=== PATIENT | female | born 1965 | race African-American/Black ===

== ENCOUNTER 2017-03-23 16:01 | Inpatient (IN) ==
[2017-03-23] MEDS ORDERED: ONDANSETRON 4 MG/2 ML VIAL IV STA (19:21)
[2017-03-23] MEDS ORDERED: NITROGLYCERIN 2% OINT 1 INCH/GM PACK TOP STA (19:21)
[2017-03-23] MEDS ORDERED: MORPHINE 2 MG/1 ML SYRINGE IV STA (19:21)
[2017-03-23] MEDS ORDERED: ALUM/MAG/SIMETH/LIDO VISC 1:1 30 ML BOTTLE PO STA (19:21)
[2017-03-23] MEDS ORDERED: INSULIN REGULAR 100 UNIT/ML IV STA (19:22)
[2017-03-23 19:27] LABS: Basophils # 0.1 10*3/uL (0.0-0.2); Basophils % 0.6 % (0.0-0.8); Eosinophils # 0.1 10*3/uL (0.0-0.87); Eosinophils % 1.1 % (0.00-10.9); Hematocrit 44.1 VOL% (35.7-47.0); Hemoglobin 15.5 GM/DL (12.0-16.0); Immature Granulocytes % 0.6 %; Immature Granulocytes Absolute 0.05 #; Lymphocytes # 2.2 10*3/uL (1.4-4.0); Lymphocytes % 25.7 % (21.3-54.2); Mean Corpuscular HGB Conc 35.1 GM/DL (32-36); Mean Corpuscular Hemoglobin 30 PG (27-34); Mean Platelet Volume 10.4 FL (9.6-12.0); Monocytes # 0.8 10*3/uL (0.11-0.8); Monocytes % 9.1 % (1.7-12.7); Neutrophils # 5.4 10*3/uL (1.4-7.4); Neutrophils % 62.9 % (38.7-73.9); Platelet Count 347 T/CUMM (130-400); Red Blood Count 5.13 MC/CUMM (3.8-5.5); Red Cell Distribution Width 12.7 % (9.3-17.3); White Blood Count 8.5 T/CUMM (4-12)
[2017-03-23] MEDS ORDERED: MORPHINE 2 MG/1 ML SYRINGE ONE (19:29)
[2017-03-23] MEDS ORDERED: ONDANSETRON 4 MG/2 ML VIAL ONE (19:29)
[2017-03-23] MEDS ORDERED: ALUM/MAG/SIMETH/LIDO VISC 1:1 30 ML BOTTLE PO ONE (19:29)
[2017-03-23] MEDS ORDERED: NITROGLYCERIN 2% OINT 1 INCH/GM PACK TOP ONE (19:29)
[2017-03-23] MEDS ORDERED: INSULIN REGULAR 100 UNIT/ML ONE ×2 (19:31→20:10)
[2017-03-23 19:36] LABS: INR 0.9; PT Patient Result 9.3 SECS
--- NOTE | 2017-03-23 19:44 | XRay Report ---
XR chest 1V portable Indication: Chest pain. Chest one view: Comparison 12/06/2014. The heart size and mediastinal contour are normal. The lungs and pleural spaces are clear. Bones are unremarkable. Impression: Negative chest. PROCEDURE INTERPRETED AT [facility] DEPARTMENT OF RADIOLOGY Final Report Signed by: Reno Jose M.D.
[2017-03-23 19:45] LABS: Albumin 3.7 G/DL (3.4-5.0); Bilirubin,Total 0.6 MG/DL (0.2-1.0); Calcium 9.2 MG/DL (8.5-10.1); Magnesium 2.3 MG/DL (1.8-2.4); Osmolality,Calculated 286.4 MOS/KG (273-304); Potassium 4.8 MMOL/L (3.5-5.1); Total Protein 8.1 G/DL (6.4-8.3)
[2017-03-23 19:53] LABS: Barbiturates Screen,Urine Negative (Negative); Benzodiazepines Screen,Urine Negative (Negative); Cannabinoid Screen,Urine Negative (Negative); Opiate Screen,Urine Negative (Negative); Phencyclidine Screen,Urine Negative (Negative)
[2017-03-23 19:57] LABS: Apearance,Urine CLEAR (Clear); Bilirubin,Urine Negative (Negative); Blood, Urine Moderate mg/dL (Negative); Glucose,Urine (UA) >=500 mg/dL (Negative); Ketones,Urine 80 mg/dL (Negative); Mucus,Urine Occasional /LPF (Occasional); Nitrite,Urine Negative (Negative); Protein,Urine Negative; RBC,Urine 6 /HPF (0-4); Squamous Epithelial Cell,Urine Occasional /HPF (0-10); Urine Color Colorless (Yellow); Urine Specific Gravity 1.025 (1.001-1.035); Urine Urobilinogen < 2.0 EU/DL (0.2-1.0); WBC,Urine 7 /HPF (0-6)
[2017-03-23] MEDS ORDERED: INSULIN REGULAR 100 UNIT/ML SUBCUT STA (20:02)
[2017-03-23] MEDS ORDERED: SODIUM CHLORIDE 0.9% 2,000 ML IV STA (20:14)
--- NOTE | 2017-03-23 20:16 | Emergency Department Note ---
Abhijeet Issa Gwan, am scribing for, and in the presence of, Sherwin Bloom MD 19 :15. Wolf Issa Charles R, MD, personally performed the services described in this documentation, ascribed by Chad Jha in my presence, and it is both accurate and complete 015 . Arrival - Arrival Chief Complaint: Chest Pain Stated Complaint: chest pain/swelling on side of private areas ED Nursing Triage Note: chest pain for the past three days. sob with chest pain today. also reports some swelling to vaginal area. Mode of Arrival: Ambulatory Limitations: No Limitations Source: Patient, Old Records Reviewed, RN Notes Reviewed Time Seen by Provider: 03/23/17 18:49 - History of Present Illness HPI Narrative: Patient is a 51 y/o black female who presents to the ED with a c/o chest pain and SOB with an onset 3 weeks ago. Patient stated that she has also had blurred vision, dry mouth and that her SOB worsens with exertion. She noted that her pain has worsened within the last 3 days prompting her visit to the ED for further evaluation. Patient confirmed that she quit smoking 2 weeks ago but denies any hx of DM or having a PCP. During exam, pt noted that she has had some swelling to her vaginal area. No other problems/complaints reported in ED. Onset (ago): day(s) Consistency: constant Severity: moderate Date of Last Menstrual Period: hyst Allergies/Adverse Reactions: Allergies Allergy/AdvReac Type Severity Reaction Status Date / Time aspirin Allergy RASH Verified 01/31/16 17:00 Home Medications: Home Medications Medication Instructions Recorded Confirmed Type No Known Home Medications [No 03/23/17 03/23/17 History Known Home Medications] Review of System - Review of System 12 point system: reviewed and no additional remarkable complaints except as stated - Review of System Constitutional: Absent: chills, fever Eyes: Present: as per HPI, vision change Head/Ears/Nose/Throat: Absent: earache Respiratory: Present: as per HPI, other (shortness of breathe ). Absent: cough Cardiovascular: Present: as per HPI, chest pain Gastrointestinal: Absent: abdominal pain, nausea, vomiting, diarrhea Genitourinary female: Absent: abnormal menses, dysuria Musculoskeletal: Absent: arm pain, back pain, leg pain, neck pain Skin: Absent: rash, lesions Neurological: Absent: headache, weakness Medical,Surgical,& Family Hx - Surgical History Reproductive Surgeries: Surgical HX of;: Hysterectomy (1997) - Social History Smoking Status: Current every day smoker Exam Vital Signs: Vital Signs Temperature 98.1 F 03/23/17 18:43 Pulse Rate 105 H 03/23/17 18:43 Respiratory Rate 20 03/23/17 18:43 Blood Pressure 192/107 03/23/17 18:43 O2 Sat by Pulse Oximetry 100 03/23/17 18:43 - General General appearance: alert, in no apparent distress - Head Head exam: Present: atraumatic, normocephalic - Eye Eye exam: Present: normal appearance, PERRL, EOMI - ENT ENT exam: Present: normal oropharynx, mucous membranes moist, TM's normal bilaterally, normal external ear exam - Neck Neck exam: Present: full ROM, trachea midline. Absent: tenderness - Chest Chest inspection: Present: symmetric chest wall rise. Absent: tenderness - Respiratory Respiratory exam: Present: rales (bilateral located at the base ), other ( decreased breath sounds ). Absent: respiratory distress - Cardiovascular Cardiovascular exam: Present: normal rhythm, tachycardia - Abdominal Exam Abdominal exam: Present: soft, normal bowel sounds. Absent: distention, tenderness - Extremities Exam Extremities exam: Present: other (+1 edema LE) - Back Exam Back exam: Present: full ROM. Absent: tenderness - Neurological Exam Neurological exam: Present: alert, oriented X3, CN II-XII intact. Absent: motor sensory deficit - Psychiatric Psychiatric exam: Present: normal affect, normal mood - Skin Skin exam: Present: warm, dry, intact, normal color Course - Consultations Consultation #1: Hospitalist will admit patient Time: 20:05 Results - Labs CBC & BMP: 03/23/17 18:38 03/23/17 18:38 Lab Results: I have reviewed the patients labs Labs: Laboratory Tests 03/23/17 03/23/17 03/23/17 18:38 18:38 18:38 Sodium 126 L Potassium 4.8 Chloride 91 L Carbon Dioxide 14 L Anion Gap 25.8 H BUN 12 Creatinine 1.00 Glucose 703 H* Alkaline Phosphatase 191 H Globulin 4.4 H Albumin/Globulin Ratio 0.8 L Lipase 357.0 Urine pH 5.0 Ur Specific Copen 1.025 Urine Glucose (UA) >=500 Urine Ketones 80 Urine Urobilinogen < 2.0 H Urine Leukocytes Small H Urine RBC 6 Urine WBC 7 Urine Opiates Screen Negative Ur Barbiturates Screen Negative Ur Phencyclidine Scrn Negative U Amphetamine/Methamph Negative U Benzodiazepines Scrn Negative U Cocaine Metab Screen Negative U Cannabinoids Screen Negative Laboratory Tests 03/23/17 18:38 WBC 8.5 RBC 5.13 Hgb 15.5 Hct 44.1 MCV 86.0 L Plt Count 347 Critical Care Time Critical Care Time: Yes Total Critical Care Time: 60 Disposition Clinical Impression: Atypical chest pain, Diabetes mellitus, new onset, Hyperglycemia, Hyponatremia , Generalized weakness, Uncontrolled hypertension, Diabetic ketoacidosis Case discussed with: patient, patient's family Disposition: Still a Patient Condition: Critical Time of Disposition: 20:05
[2017-03-23 20:17] LABS: ABG Base Excess -17.2 MMOL/L (-2.5-2.5); ABG Oxygen Saturation 98.5 % (95-100); ABG TCO2 7.4 MMOL/L (23-27); Allen Test Positive
[2017-03-23 20:22] LABS: ABG PCO2 18.3 MM HG (35-48)
[2017-03-23] MEDS ORDERED: cefTRIAXone 1,000 MG VIAL ONE (20:26)
--- NOTE | 2017-03-23 20:31 | Hospitalist History & Physical ---
Assessment and Plan (1) Diabetic ketoacidosis Status: Acute Assessment and plan: NS bolus and insulin bolus given in ER. DKA insulin drip and cont NS bolus Current Visit: Yes (2) Chest pain Status: Acute Assessment and plan: serial troponins and ekgs Current Visit: Yes (3) Hyponatremia Status: Acute Assessment and plan: ns bolus and cont NS hydration Current Visit: Yes (4) Uncontrolled hypertension Status: Acute Assessment and plan: metoprolol 25 mg po bid Current Visit: Yes History of Present Illness Chief complaint: sob History of present illness: Ms. Jackson is a 51 year old female who presents to the ED with a c/o chest pain and SOB with an onset 3 weeks ago. Patient stated that she has also had blurred vision, dry mouth, chest pressure and that her SOB worsens with exertion. She noted that her chest pain has worsened within the last 3 days prompting her visit to the ED for further evaluation. Patient confirmed that she quit smoking and drinking two weeks ago but denies any hx of DM or having a PCP. During exam , pt noted that she has had some swelling to her vaginal area. No other problems /complaints reported in ED. Home Medications Medication Instructions Recorded Confirmed Type No Known Home Medications [No 03/23/17 03/23/17 History Known Home Medications] Allergies Allergy/AdvReac Type Severity Reaction Status Date / Time aspirin Allergy RASH Verified 01/31/16 17:00 Medical,Surgical,& Family Hx - Medical History Other: History of: Miscellaneous Medical Problems (none ) - Surgical History Reproductive Surgeries: Surgical HX of;: Hysterectomy (1997) Orthopedic Surgeries: Surgical HX of;: Orthopedic Surgery (foot surgery ) - Family History Family History: Reports;: Family Diabetes, Family Heart Disease, Family Stroke - Social History Smoking Status: Former smoker Frequency of Alcohol Use: None (used to drink but quit) Marital Status: Lives With:: Spouse Functional capacity: independent ambulation - Constitutional Constitutional: Present: fatigue, fever(s). Absent: headache(s) - EENT Eyes: Present: blurry vision. Absent: diplopia Ears: Absent: decreased hearing, ear discharge Nose, mouth and throat: Absent: headache(s), sore throat - Cardiovascular Cardiovascular: Present: chest pain at rest, chest pain with activity, dyspnea, dyspnea on exertion. Absent: edema - Respiratory Respiratory: Present: dyspnea, dyspnea on exertion. Absent: wheezing - Gastrointestinal Gastrointestinal: Present: nausea. Absent: constipation, diarrhea, vomiting - Genitourinary Genitourinary: Absent: difficulty urinating, dysuria - Neurological Neurological: Present: confusion, dizziness. Absent: focal weakness, headache(s ), syncope - Psychiatric Psychiatric: Present: confusion. Absent: anxiety, depression - Endocrine Endocrine: Present: cold intolerance, fatigue - Hematologic/Lymphatic Hematologic/Lymphatic: Absent: easy bleeding, easy bruising Exam - Constitutional Vitals: Period Temp Pulse Resp BP Sys/Cunningham Pulse Ox Last 24 Hr 98.1 F-98.1 F 84-105 15-20 141-192/94-107 99-100 General appearance: normal weight, mild distress - Head Head exam: Present: normal inspection, normocephalic - Eye Eye exam: Present: EOMI. Absent: scleral icterus Pupils: Present: CYNTHIA, normal accommodation - ENT ENT exam: Present: normal exam, normal external ear exam - Neck Neck exam: Absent: lymphadenopathy, thyromegaly - Respiratory Respiratory exam: Present: clear to auscultation bilaterally. Absent: rhonchi, wheezes - Cardiovascular Cardiovascular exam: Present: tachycardia. Absent: systolic murmur - GI/Abdominal GI/Abdominal exam: Present: normal bowel sounds, soft. Absent: tenderness - Extremities Exam Extremities exam: Present: normal inspection, normal capillary refill - Neurological Exam Neurological exam: Present: alert, oriented X3 (times 2), reflexes normal. Absent: motor sensory deficit - Psychiatric Psychiatric exam: Present: normal affect, normal mood - Skin Skin exam: Present: normal color, warm Results - Labs CBC & BMP: 03/23/17 18:38 03/23/17 18:38 Lab Results: I have reviewed the past 24 hour labs - EKG EKG shows: tachycardia, sinus rhythm - Diagnostic Findings Procedure: Chest x-ray: report reviewed by me (nothing acute )
[2017-03-23 20:36] LABS: Magnesium 2.4 MG/DL (1.8-2.4); Phosphorous 4.2 MG/DL (2.5-4.9)
[2017-03-23] MEDS: cefTRIAXone 1,000 MG in SODIUM CHLORIDE 0.9% 100 ML IV SCH (20:40)
[2017-03-23] MEDS ORDERED: MAGNESIUM SULF RIDER 2 GM in PREMIX 1 EACH IV PRN (21:15)
[2017-03-23] MEDS ORDERED: SODIUM CHLORIDE 0.9% 1,000 ML IV ONE (21:15)
[2017-03-23] MEDS ORDERED: SODIUM BICARB INJ 100 MEQ in STERILE WATER INJ 400 ML IV PRN (21:15)
[2017-03-23] MEDS ORDERED: POTASSIUM CHLORIDE RIDER 10 MEQ in PREMIX 1 EACH IV PRN (21:15)
[2017-03-23] MEDS ORDERED: DEXTROSE 50% 25 GM/50 ML VIAL IV PRN ×2 (21:15)
[2017-03-23] MEDS ORDERED: MAGNESIUM SULF RIDER 4 GM in PREMIX 1 EACH IV PRN (21:15)
[2017-03-23] MEDS ORDERED: INSULIN REGULAR DRIP 100 ML IV SCH (21:15)
[2017-03-23] MEDS ORDERED: SODIUM PHOSPHATE INJ 14.2 MMOL in SODIUM CHLORIDE 0.9% 250 ML IV PRN (21:15)
[2017-03-23 21:51] LABS: Basophils % 0.4 % (0.0-0.8); Eosinophils # 0.1 10*3/uL (0.0-0.87); Eosinophils % 1.8 % (0.00-10.9); Hematocrit 36.7 VOL% (35.7-47.0); Hemoglobin 12.7 GM/DL (12.0-16.0); Immature Granulocytes % 0.3 %; Immature Granulocytes Absolute 0.02 #; Lymphocytes # 2.2 10*3/uL (1.4-4.0); Lymphocytes % 29.5 % (21.3-54.2); Mean Corpuscular HGB Conc 34.6 GM/DL (32-36); Mean Corpuscular Hemoglobin 30 PG (27-34); Mean Corpuscular Volume 86.4 FL (87-102); Mean Platelet Volume 9.9 FL (9.6-12.0); Monocytes # 0.9 10*3/uL (0.11-0.8); Neutrophils # 4.1 10*3/uL (1.4-7.4); Platelet Count 289 T/CUMM (130-400); Red Blood Count 4.25 MC/CUMM (3.8-5.5); Red Cell Distribution Width 12.7 % (9.3-17.3); White Blood Count 7.4 T/CUMM (4-12)
[2017-03-23] MEDS: METOPROLOL TARTRATE 25 MG TABLET PO SCH (21:53)
[2017-03-23 22:18] LABS: Calcium 8.4 MG/DL (8.5-10.1)
[2017-03-23] MEDS: SODIUM CHLORIDE 0.9% 1,000 ML IV SCH (22:44)
[2017-03-23] MEDS ORDERED: diphenhydrAMINE 50 MG/1 ML VIAL IV PRN (23:38)
[2017-03-23] MEDS: FLUCONAZOLE INJ 200 MG in PREMIX 1 EACH IV SCH (23:56)
[2017-03-24] MEDS ORDERED: SODIUM CHLORIDE 0.9% 1,000 ML IV SCH ×2 (01:17→04:00)
[2017-03-24] MEDS: SODIUM CHLORIDE 0.9% 1,000 ML IV SCH (01:46)
[2017-03-24 01:53] LABS: Osmolality,Calculated 285.8 MOS/KG (273-304); Potassium 3.5 MMOL/L (3.5-5.1)
[2017-03-24 02:03] LABS: Magnesium 1.8 MG/DL (1.8-2.4); Phosphorous 1.9 MG/DL (2.5-4.9)
[2017-03-24] MEDS ORDERED: DEXTROSE 5% NACL 0.9% 1,000 ML IV SCH (02:30)
[2017-03-24 05:35] LABS: Basophils % 0.4 % (0.0-0.8); Eosinophils # 0.1 10*3/uL (0.0-0.87); Eosinophils % 1.9 % (0.00-10.9); Hematocrit 29.4 VOL% (35.7-47.0); Hemoglobin 10.4 GM/DL (12.0-16.0); Immature Granulocytes % 0.6 %; Immature Granulocytes Absolute 0.03 #; Lymphocytes # 1.8 10*3/uL (1.4-4.0); Lymphocytes % 33.7 % (21.3-54.2); Mean Corpuscular HGB Conc 35.4 GM/DL (32-36); Mean Corpuscular Hemoglobin 30 PG (27-34); Mean Corpuscular Volume 85.7 FL (87-102); Mean Platelet Volume 9.8 FL (9.6-12.0); Monocytes # 0.5 10*3/uL (0.11-0.8); Monocytes % 8.8 % (1.7-12.7); Neutrophils # 2.9 10*3/uL (1.4-7.4); Neutrophils % 54.6 % (38.7-73.9); Platelet Count 236 T/CUMM (130-400); Red Blood Count 3.43 MC/CUMM (3.8-5.5); Red Cell Distribution Width 12.7 % (9.3-17.3); White Blood Count 5.3 T/CUMM (4-12)
[2017-03-24 06:00] LABS: Calcium 6.8 MG/DL (8.5-10.1); Osmolality,Calculated 282.1 MOS/KG (273-304); Potassium 3.3 MMOL/L (3.5-5.1)
[2017-03-24] MEDS: DEXTROSE 5% NACL 0.9% 500 ML IV SCH ×2 (06:30→08:31)
--- NOTE | 2017-03-24 06:37 | EKG Report ---
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
--- NOTE | 2017-03-24 07:55 | EKG Report ---
Stationary ECG Study [facility] Test Date: 03/24/2017 6:13:26 AM Pat Name: GREGORY GERARD Department: Room: 123 Gender: F Document Review Specialist: : 1965 Requested by: Alannah Jacob Order Number: [id number] Reading MD: CATHERINE RODRIGUES Intervals [place] Rate: 75 P: 62 AL: 164 QRS: 72 QRSD: 82 T: 35 QT: 354 QTc: 383 Interpretive Statements SINUS RHYTHM POSSIBLE RIGHT VENTRICULAR CONDUCTION DELAY Electronically Signed On 03-25-17 16:16:22 CDT by CATHERINE RODRIGUES [email or web address]
--- NOTE | 2017-03-24 08:03 | EKG Report ---
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
[2017-03-24] MEDS ORDERED: POTASSIUM CHLORIDE 20 MEQ TABLET PO ONE (08:17)
[2017-03-24] MEDS ORDERED: GLUCAGON 1 MG VIAL IM PRN (08:20)
[2017-03-24] MEDS ORDERED: MAGNESIUM SULF RIDER 2 GM in PREMIX 1 EACH IV ONE (08:23)
--- NOTE | 2017-03-24 08:55 | XRay Report ---
XR chest 1V portable Indication: Shortness of breath Comparison: 23 March 2017 Findings: The heart and mediastinum are normal in size and configuration. The pulmonary vascularity is normal in caliber. No lung infiltrates, effusions, pneumothorax or other abnormality is demonstrated. Impression: Normal chest x-ray PROCEDURE INTERPRETED AT [facility] DEPARTMENT OF RADIOLOGY Final Report Signed by: Dr. See Lorenzana
[2017-03-24] MEDS: INSULIN NPH/REGULAR 70/30 100 UNIT/ML SUBCUT SCH (09:21)
[2017-03-24] MEDS: ENOXAPARIN 40 MG/0.4 ML SYRINGE SUBCUT SCH (09:32)
[2017-03-24] MEDS: METOPROLOL TARTRATE 25 MG TABLET PO SCH ×2 (09:32→21:12)
[2017-03-24] MEDS: MAGNESIUM SULF RIDER 2 GM in PREMIX 1 EACH IV ONE ×2 (10:00→13:07)
[2017-03-24 10:28] LABS: Calcium 7.1 MG/DL (8.5-10.1); Osmolality,Calculated 284.1 MOS/KG (273-304); Potassium 3.6 MMOL/L (3.5-5.1)
[2017-03-24] MEDS ORDERED: SODIUM CHLORIDE 0.9% 500 ML IV ONE (12:26)
--- NOTE | 2017-03-24 12:46 | Hospitalist Progress Note ---
Assessment and Plan (1) Diabetic ketoacidosis Status: Acute Assessment and plan: converted to 70/30, change blood sugars qAC and qHS. cont fluids 1/2 ns with 40 meq of KCL Current Visit: Yes (2) Chest pain Status: Acute Assessment and plan: serial troponins negative, EKG unable to view. Current Visit: Yes (3) Hyponatremia Status: Acute Assessment and plan: resolved Current Visit: Yes (4) Uncontrolled hypertension Status: Acute Assessment and plan: metoprolol 25 mg po bid Current Visit: Yes Hospitalist: Subjective Interval history: Gap is closed given 70/30 insulin as noninsured. Blood pressure better today. Exam - Constitutional Vitals: Period Temp Pulse Resp BP Sys/Cunningham Pulse Ox Last 24 Hr 97.9 F-98.4 F 67-105 14-23 79-192/60-107 96-100 Exam: Heart Rate-[RRR] Lungs-[CTAB but diminished ] GI-[+bs soft, NT] Ext-[no edema] Neuro [Motor 5/5], [alert and oriented times 3] psych [normal mood and affect] General [no acute distress] Results - Labs CBC & BMP: 03/24/17 05:21 03/24/17 09:49 Lab Results: I have reviewed the past 24 hour labs - Diagnostic Findings Procedure: Chest x-ray: report reviewed by me (normal )
[2017-03-24] MEDS: INSULIN REGULAR 100 UNIT/ML SUBCUT SCH ×3 (12:53→21:11)
[2017-03-24] MEDS: POTASSIUM CHLORIDE INJ 40 MEQ in SODIUM CHLORIDE 0.45% 1,000 ML IV SCH (12:55)
[2017-03-24] MEDS ORDERED: SODIUM CHLORIDE 0.45% 1,000 ML IV SCH (13:17)
[2017-03-24] MEDS ORDERED: POTASSIUM PHOSPHATE 30 MMOL in SODIUM CHLORIDE 0.9% 250 ML IV ONE (13:30)
[2017-03-24] MEDS ORDERED: INSULIN NPH/REGULAR 70/30 100 UNIT/ML SUBCUT SCH (16:30)
[2017-03-24] MEDS: cefTRIAXone 1,000 MG in SODIUM CHLORIDE 0.9% 100 ML IV SCH (21:08)
[2017-03-25] MEDS: POTASSIUM CHLORIDE INJ 40 MEQ in SODIUM CHLORIDE 0.45% 1,000 ML IV SCH ×4 (00:05→21:41)
[2017-03-25] MEDS: FLUCONAZOLE INJ 200 MG in PREMIX 1 EACH IV SCH (00:21)
[2017-03-25 06:42] LABS: Basophils % 0.2 % (0.0-0.8); Eosinophils # 0.1 10*3/uL (0.0-0.87); Eosinophils % 2.1 % (0.00-10.9); Hematocrit 31.4 VOL% (35.7-47.0); Hemoglobin 11.2 GM/DL (12.0-16.0); Immature Granulocytes % 0.5 %; Immature Granulocytes Absolute 0.03 #; Lymphocytes # 1.8 10*3/uL (1.4-4.0); Lymphocytes % 31.6 % (21.3-54.2); Mean Corpuscular HGB Conc 35.7 GM/DL (32-36); Mean Corpuscular Hemoglobin 30 PG (27-34); Mean Corpuscular Volume 84.9 FL (87-102); Mean Platelet Volume 10.1 FL (9.6-12.0); Monocytes # 0.5 10*3/uL (0.11-0.8); Monocytes % 8.9 % (1.7-12.7); Neutrophils # 3.3 10*3/uL (1.4-7.4); Neutrophils % 56.7 % (38.7-73.9); Platelet Count 273 T/CUMM (130-400); Red Cell Distribution Width 12.9 % (9.3-17.3); White Blood Count 5.8 T/CUMM (4-12)
[2017-03-25 07:12] LABS: Calcium 7.7 MG/DL (8.5-10.1); Magnesium 1.9 MG/DL (1.8-2.4); Osmolality,Calculated 279.1 MOS/KG (273-304); Potassium 4.1 MMOL/L (3.5-5.1)
[2017-03-25] MEDS ORDERED: PNEUMOCOCCAL VACCINE (23 VALENT) 0.5 ML VIAL IM ONE (09:00)
[2017-03-25] MEDS: INSULIN REGULAR 100 UNIT/ML SUBCUT SCH ×4 (09:23→22:02)
[2017-03-25] MEDS: INSULIN NPH/REGULAR 70/30 100 UNIT/ML SUBCUT SCH ×2 (09:23→17:29)
[2017-03-25] MEDS: METOPROLOL TARTRATE 25 MG TABLET PO SCH ×2 (09:23→21:26)
[2017-03-25] MEDS: ENOXAPARIN 40 MG/0.4 ML SYRINGE SUBCUT SCH (09:24)
--- NOTE | 2017-03-25 14:39 | Hospitalist Progress Note ---
Assessment and Plan (1) Diabetic ketoacidosis Status: Acute Assessment and plan: Resolving, blood sugar is still high Increase 70/30 to 40unit qam and 25unit qhs, follow response hbA1c->15.5 DM teaching TSH, lipids level Current Visit: Yes (2) Hyponatremia Status: Acute Assessment and plan: most likely pseudo due to hyperglycemia- resolved Current Visit: Yes (3) HTN (hypertension) Status: Acute Assessment and plan: better controlled. Current Visit: Yes (4) Yeast UTI Status: Acute Assessment and plan: on IV diflucan BC- negative consider dcing Rocephin Current Visit: Yes Hospitalist: Subjective Interval history: Patient was admitted to the unit for DKA,transferred to the floor yesterday.This am, she feels better but we are still adjusting her insulin. Exam - Constitutional Vitals: Period Temp Pulse Resp BP Sys/Cunningham Pulse Ox Last 24 Hr 97.6 F-98.9 F 77-95 16-24 103-141/68-97 96-100 General appearance: no acute distress - Head Head exam: Present: normal inspection - Respiratory Respiratory exam: Present: clear to auscultation bilaterally - Cardiovascular Cardiovascular exam: Present: regular rate and rhythm - GI/Abdominal GI/Abdominal exam: Present: normal bowel sounds - Extremities Exam Extremities exam: Present: normal inspection - Neurological Exam Neurological exam: Present: alert, oriented X3 Results - Labs CBC & BMP: 03/25/17 06:28 03/25/17 06:28 Lab Results: I have reviewed the past 24 hour labs
[2017-03-25 15:46] LABS: Free T4 (Free Thyroxine) 1.29 NG/DL (0.76-1.46); Thyroid Stimulating Hormone 1.66 uIU/ml (0.358-3.74)
[2017-03-25] MEDS: cefTRIAXone 1,000 MG in SODIUM CHLORIDE 0.9% 100 ML IV SCH (21:28)
[2017-03-26] MEDS: FLUCONAZOLE INJ 200 MG in PREMIX 1 EACH IV SCH (00:08)
[2017-03-26] MEDS: POTASSIUM CHLORIDE INJ 40 MEQ in SODIUM CHLORIDE 0.45% 1,000 ML IV SCH ×2 (02:18→12:43)
[2017-03-26 05:12] LABS: Basophils % 0.2 % (0.0-0.8); Eosinophils # 0.1 10*3/uL (0.0-0.87); Eosinophils % 2.1 % (0.00-10.9); Hematocrit 30.7 VOL% (35.7-47.0); Hemoglobin 10.8 GM/DL (12.0-16.0); Immature Granulocytes % 0.6 %; Immature Granulocytes Absolute 0.03 #; Lymphocytes # 2.2 10*3/uL (1.4-4.0); Lymphocytes % 41.1 % (21.3-54.2); Mean Corpuscular HGB Conc 35.2 GM/DL (32-36); Mean Corpuscular Hemoglobin 30 PG (27-34); Mean Platelet Volume 10.5 FL (9.6-12.0); Monocytes # 0.6 10*3/uL (0.11-0.8); Monocytes % 10.9 % (1.7-12.7); Neutrophils # 2.4 10*3/uL (1.4-7.4); Neutrophils % 45.1 % (38.7-73.9); Platelet Count 301 T/CUMM (130-400); Red Blood Count 3.61 MC/CUMM (3.8-5.5); White Blood Count 5.3 T/CUMM (4-12)
[2017-03-26 05:54] LABS: Risk Ratio 4.28; VLDL CHOLESTEROL 26.8 MG/DL
[2017-03-26 05:58] LABS: Calcium 8.5 MG/DL (8.5-10.1); Osmolality,Calculated 285.7 MOS/KG (273-304); Potassium 4.4 MMOL/L (3.5-5.1)
[2017-03-26] MEDS: INSULIN NPH/REGULAR 70/30 100 UNIT/ML SUBCUT SCH ×2 (09:06→17:47)
[2017-03-26] MEDS: INSULIN REGULAR 100 UNIT/ML SUBCUT SCH ×4 (09:07→20:36)
[2017-03-26] MEDS: ENOXAPARIN 40 MG/0.4 ML SYRINGE SUBCUT SCH (09:07)
[2017-03-26] MEDS: METOPROLOL TARTRATE 25 MG TABLET PO SCH ×2 (09:46→20:36)
--- NOTE | 2017-03-26 16:51 | Hospitalist Progress Note ---
Assessment and Plan (1) Diabetes mellitus, new onset Status: Acute Current Visit: Yes (2) Hyperglycemia Status: Acute Current Visit: Yes (3) HTN (hypertension) Status: Acute Current Visit: Yes (4) Yeast UTI Status: Acute Current Visit: Yes Hospitalist: Subjective Interval history: No acute events overnight. Patient reports that she still has unable to give herself an insulin shot, due to being nervous. Exam - Constitutional Vitals: Period Temp Pulse Resp BP Sys/Cunningham Pulse Ox Last 24 Hr 97 F-99.1 F 70-87 16-20 100-129/60-85 95-100 General appearance: normal weight - Head Head exam: Present: normocephalic, atraumatic - Eye Eye exam: Present: EOMI Pupils: Present: CYNTHIA - ENT ENT exam: Present: normal exam - Neck Neck exam: Present: normal inspection - Respiratory Respiratory exam: Present: clear to auscultation bilaterally. Absent: wheezes - Cardiovascular Cardiovascular exam: Present: regular rate and rhythm - GI/Abdominal GI/Abdominal exam: Present: normal bowel sounds, soft. Absent: tenderness, rebound - Extremities Exam Extremities exam: Present: normal inspection - Back Exam Back exam: Present: normal inspection - Neurological Exam Neurological exam: Present: alert, oriented X3 - Psychiatric Psychiatric exam: Present: normal affect, normal mood - Skin Skin exam: Present: warm, intact Results - Labs CBC & BMP: 03/26/17 04:14 03/26/17 04:14
[2017-03-26] MEDS ORDERED: INSULIN NPH/REGULAR 70/30 100 UNIT/ML SUBCUT SCH (16:53)
[2017-03-26] MEDS: cefTRIAXone 1,000 MG in SODIUM CHLORIDE 0.9% 100 ML IV SCH (20:37)
[2017-03-27] MEDS: FLUCONAZOLE INJ 200 MG in PREMIX 1 EACH IV SCH (00:23)
[2017-03-27] MEDS: ENOXAPARIN 40 MG/0.4 ML SYRINGE SUBCUT SCH (08:37)
[2017-03-27] MEDS: METOPROLOL TARTRATE 25 MG TABLET PO SCH ×2 (08:37→20:14)
[2017-03-27] MEDS: INSULIN NPH/REGULAR 70/30 100 UNIT/ML SUBCUT SCH (08:37)
[2017-03-27] MEDS: INSULIN REGULAR 100 UNIT/ML SUBCUT SCH ×4 (08:38→20:14)
--- NOTE | 2017-03-27 16:16 | Hospitalist Progress Note ---
Assessment and Plan (1) Diabetes mellitus, new onset Status: Acute Assessment and plan: Continue Insulin NPH/Regular, FSG a little better this am SSI Diabetes education Current Visit: Yes (2) Hyperglycemia Status: Acute Assessment and plan: Improving Current Visit: Yes (3) HTN (hypertension) Status: Acute Assessment and plan: Continue metoprolol Current Visit: Yes (4) Yeast UTI Status: Acute Assessment and plan: Completed course of fluconazole Current Visit: Yes Hospitalist: Subjective Interval history: No acute events overnight. Patient reports headache today. Exam - Constitutional Vitals: Period Temp Pulse Resp BP Sys/Cunningham Pulse Ox Last 24 Hr 97.1 F-98.7 F 69-96 16-20 115-161/77-93 97-100 General appearance: normal weight - Head Head exam: Present: normocephalic, atraumatic - Eye Eye exam: Present: EOMI Pupils: Present: CYNTHIA - ENT ENT exam: Present: normal exam - Neck Neck exam: Present: normal inspection - Respiratory Respiratory exam: Present: clear to auscultation bilaterally - Cardiovascular Cardiovascular exam: Present: regular rate and rhythm - GI/Abdominal GI/Abdominal exam: Present: normal bowel sounds, soft. Absent: tenderness, rebound - Extremities Exam Extremities exam: Present: normal inspection - Back Exam Back exam: Present: normal inspection - Neurological Exam Neurological exam: Present: alert, oriented X3 - Psychiatric Psychiatric exam: Present: normal affect, normal mood - Skin Skin exam: Present: warm, intact Results - Labs CBC & BMP: 03/26/17 04:14 03/26/17 04:14
[2017-03-27] MEDS: metFORMIN 500 MG TABLET PO SCH (17:40)
[2017-03-28] MEDS: INSULIN REGULAR 100 UNIT/ML SUBCUT SCH (09:01)
[2017-03-28] MEDS: ENOXAPARIN 40 MG/0.4 ML SYRINGE SUBCUT SCH (09:01)
[2017-03-28] MEDS: INSULIN NPH/REGULAR 70/30 100 UNIT/ML SUBCUT SCH (09:01)
[2017-03-28] MEDS: METOPROLOL TARTRATE 25 MG TABLET PO SCH (09:02)
[2017-03-28] MEDS: metFORMIN 500 MG TABLET PO SCH (09:02)
[2017-03-28 09:41] VITALS: BP 149/81
--- NOTE | 2017-03-28 10:16 | Discharge Summary ---
<Rainer Camacho - Last Filed: 03/28/17 09:51> Hospital Course - Hospital Course Hospital Course: This is a very pleasant 51-year-old female that presented to the ED at [facility] on March 23, 2017 for the evaluation of chest pain and shortness of breath. Patient has a medical history significant for nicotine abuse and a surgical history significant for hysterectomy. The patient reported the onset of the above symptoms 3 weeks prior to presentation. In addition, the patient reported blurred vision, dry mouth, and shortness of breath upon minimal exertion. She reported that her symptoms increase in severity 3 days prior to presentation which prompted her to report to the ED for further evaluation. She reported that she recently stopped smoking 2 weeks prior to presentation and that she was experiencing some swelling to her vaginal area. The patient was assessed in the ED. At the time of ED presentation, the patient was noted to be grossly hypertensive with a blood pressure noted at 192/ 107. Labs were obtained; hematology panel reported a white blood cell count at 8.5, hemoglobin 15.5, hematocrit 44.1, platelet count at 347. Chemistry panel reported a sodium at 126, potassium 4.8, chloride 91, anion gap 14, BUN 12, creatinine 1.00, beta hydroxybutyrate at 8.9, alkaline phosphatase at 191 and glucose 703. Arterial blood gas reported a pH of 7.270, PCO2 at 18.3, HCO3 12.0 , and CO2 at 7.4. Urinalysis reported a small amount of leukocytes. Chest x- ray was essentially negative for any acute cardiopulmonary processes. Urine toxicology was essentially negative. The patient was subsequently admitted to the critical care services under the direction of the hospitalist services for continuation of care. She was gently rehydrated and placed on an insulin drip. Oral antihypertensive agents were initiated for blood pressure control. Serial cardiac enzymes were ordered which were essentially benign. Blood cultures were obtained at admission and were negative for the presence of any microorganisms; however urine culture was positive for Dominique albicans. The patient was started on fluconazole intravenously and her symptoms improved. The patient's blood glucose levels normalized and the patient was subsequently transferred to the general medical surgical floor for continuation of care. The patient's vital signs were stable. She has not experienced any significant overnight events. Blood glucose levels have improved. She has now reached maximal benefit of inpatient stay and will be discharged home. Discharge Plan - Discharge Data Disposition: Disch To Home/Self Care - Discharge Medications New Insulin NPH/Regular 70/30 [HumuLIN 70/30] 25 unit SUBCUT AC SUPPER #500 unit Metoprolol Tartrate Tab [Lopressor Tab] 25 mg PO BID #60 tablet metFORMIN [Glucophage] 500 mg PO BID W/MEALS #60 tablet Insulin NPH/Regular 70/30 [HumuLIN 70/30] 40 unit SUBCUT AC BREAKFAST #500 unit - Follow Up or Referral - Forms/Instructions Exam - Constitutional Vitals: Period Temp Pulse Resp BP Sys/Cunningham Pulse Ox Last 24 Hr 97.3 F-98.9 F 68-83 16-100 119-157/73-93 96-100 Discharge Results Procedures and tests throughout hospitalization: Pending Orders 03/23/17 21:31 Blood Culture Stat Labs on day of discharge: Labs from last 24 hours 03/28/17 03/27/17 03/27/17 07:32 19:35 15:41 POC Glucose 91 251 H 308 H 03/27/17 03/27/17 11:42 07:16 POC Glucose 251 H 91 Preliminary micro results at discharge 03/23/17 21:31 Blood Culture - Preliminary Blood No growth at 3 days 03/23/17 21:31 Blood Culture - Preliminary Blood No growth at 3 days DS: Provider Date of admission: 03/23/17 20:17 Primary care physician: . No PCP Attending physician on admission: Alannah Li MD Consults: 03/23/17 20:40 Consult to [facility], Educator [CONS] Routine Reason for Ammunition Specialist: Diabetes Education Initial Insulin Education 03/23/17 21:15 Consult to [facility], Educator [CONS] Routine Reason for Ammunition Specialist: Diabetes Education Initial Insulin Education Consult Comment: INSULIN EDUCATION 03/23/17 21:27 Consult to [facility], Educator [CONS] Routine Reason for Ammunition Specialist: Initial Insulin Education Consult Comment: new diagnosed diabetes Consult to Dietitian [CONS] Routine Reason for Dietitian: Other Consult Comment: weight loss/ newly diagnosed diabetic 03/25/17 08:22 Consult to [facility], Educator [CONS] Routine Reason for Ammunition Specialist: Diabetes Education Consult Comment: new diabetic Discharging clinician: Rainer Camacho CNP <Mary Jo Pza - Last Filed: 03/28/17 10:41> Hospital Course - Time spent with patient Time with patient DS: Greater than 30 minutes (45) Diagnosis - Discharge Diagnosis (1) Diabetes mellitus, new onset Status: Chronic (2) Hyperglycemia Status: Resolved (3) HTN (hypertension) Status: Chronic (4) Yeast UTI Status: Resolved Discharge Plan - Discharge Data Condition at Discharge: Stable Discharge Diet: diabetic diet, low salt diet Activity: increase activity as tolerated Hygiene: no restrictions Weight Bearing at Discharge: weight bear as tolerated Driving: no restrictions Contact your physician if you experience:: Nausea/Vomiting Exam - Constitutional General appearance: normal weight - Head Head exam: Present: normocephalic, atraumatic - Eye Eye exam: Present: EOMI Pupils: Present: CYNTHIA - ENT ENT exam: Present: normal exam - Neck Neck exam: Present: normal inspection - Respiratory Respiratory exam: Present: clear to auscultation bilaterally - Cardiovascular Cardiovascular exam: Present: regular rate and rhythm - GI/Abdominal GI/Abdominal exam: Present: normal bowel sounds, soft. Absent: tenderness, rebound - Extremities Exam Extremities exam: Present: normal inspection - Back Exam Back exam: Present: normal inspection - Neurological Exam Neurological exam: Present: alert, oriented X3 - Psychiatric Psychiatric exam: Present: normal affect, normal mood - Skin Skin exam: Present: warm, intact
== END 2017-03-28 11:59 | disposition home or self-care (01) | DRG 638 ==
LOC: N.ED 16:01 → SUATTDRO 20:17 → N.EDINP 20:17 → N.CC 20:53 → N.5E 03-24 16:20
PROVIDERS: ADMIT Internal Medicine; ATTEND Internal Medicine

== ENCOUNTER 2021-11-28 06:07 | Observation (INO) ==
[2021-11-28] MEDS ORDERED: ASPIRIN 325 MG TABLET PO STA (06:20)
[2021-11-28] MEDS ORDERED: METOPROLOL TARTRATE 5 MG/5 ML VIAL IV STA (06:20)
[2021-11-28] MEDS ORDERED: KETOROLAC 30 MG/1 ML VIAL IV STA (06:21)
[2021-11-28 06:41] LABS: Basophils % 0.6 % (0.0-0.8); Eosinophils # 0.1 10*3/uL (0.0-0.87); Eosinophils % 1.7 % (0.00-10.9); Hematocrit 42.3 VOL% (35.7-47.0); Hemoglobin 13.9 GM/DL (12.0-16.0); Immature Granulocytes % 0.3 %; Immature Granulocytes Absolute 0.01 #; Lymphocytes # 1.2 10*3/uL (1.4-4.0); Lymphocytes % 32.5 % (21.3-54.2); Mean Corpuscular HGB Conc 32.9 GM/DL (32-36); Mean Corpuscular Volume 93.2 FL (87-102); Mean Platelet Volume 8.8 FL (9.6-12.0); Monocytes % 9.6 % (1.7-12.7); Neutrophils % 55.3 % (38.7-73.9); Platelet Count 307 T/CUMM (130-400); Red Blood Count 4.54 MC/CUMM (3.8-5.5); Red Cell Distribution Width 12.5 % (9.3-17.3); White Blood Count 3.5 T/CUMM (4-12)
[2021-11-28 06:47] LABS: PT Patient Result 11.4 SECS (10.5-12.0); Partial Thromboplastin Time 25.4 SECS (23.8-32.1)
[2021-11-28 06:52] LABS: Albumin 2.9 G/DL (3.4-5.0); Bilirubin,Total 0.4 MG/DL (0.20-1.00); Calcium 7.3 MG/DL (8.5-10.1); Osmolality,Calculated 287.8 MOS/KG (273-304); Potassium 3.6 MMOL/L (3.5-5.1)
[2021-11-28 07:41] LABS: Bacteria,Urine Occasional /HPF (Few); RBC,Urine 1 /HPF (0-4)
[2021-11-28 07:42] LABS: Bilirubin,Urine Negative (Negative); Blood, Urine Negative (Negative); Glucose,Urine (UA) Negative (Negative); Ketones,Urine Negative (Negative); Nitrite,Urine Negative (Negative); Protein,Urine Negative; Urine Appearance Clear (Clear); Urine Color Yellow (Yellow); Urine Urobilinogen 0.2 EU/DL (<2.0)
[2021-11-28 08:48] LABS: Barbiturates Screen,Urine Negative (Negative); Benzodiazepines Screen,Urine Negative (Negative); Cannabinoid Screen,Urine Negative (Negative); Opiate Screen,Urine Negative (Negative); Phencyclidine Screen,Urine Negative (Negative)
[2021-11-28] MEDS ORDERED: hydrALAZINE 20 MG/1 ML VIAL IV PRN (09:51)
[2021-11-28] MEDS ORDERED: DEXTROSE 10% 250 ML BAG IV PRN (09:51)
[2021-11-28] MEDS ORDERED: CALCIUM CARBONATE CHEW 500 MG TABLET PO PRN (09:51)
[2021-11-28] MEDS ORDERED: GLUCAGON 1 MG VIAL IM PRN (09:51)
[2021-11-28] MEDS ORDERED: DEXTROSE 50% 25 GM/50 ML VIAL IV PRN (09:51)
[2021-11-28] MEDS ORDERED: SIMETHICONE CHEW 125 MG TABLET PO PRN (09:51)
[2021-11-28] MEDS ORDERED: DOCUSATE SODIUM 100 MG CAPSULE PO PRN (09:51)
[2021-11-28] MEDS ORDERED: ACETAMINOPHEN 325 MG TABLET PO PRN (09:51)
[2021-11-28] MEDS ORDERED: ONDANSETRON 4 MG/2 ML VIAL IV PRN (09:51)
[2021-11-28] MEDS ORDERED: NITROGLYCERIN SL 0.4 MG TABLET SL PRN (09:57)
[2021-11-28] MEDS ORDERED: carvediloL 3.125 MG TABLET PO SCH (10:00)
[2021-11-28] MEDS ORDERED: LORazepam 2 MG/1 ML VIAL IV PRN (10:36)
[2021-11-28] MEDS ORDERED: LORazepam 1 MG TABLET PO PRN (10:36)
[2021-11-28] MEDS: ENOXAPARIN 40 MG/0.4 ML SYRINGE SUBCUT SCH (11:12)
[2021-11-28] MEDS: PANTOPRAZOLE 40 MG TABLET PO SCH (11:12)
[2021-11-28] MEDS: INSULIN REGULAR 100 UNIT/ML SUBCUT SCH ×3 (14:42→21:54)
[2021-11-28] MEDS ORDERED: ATORVASTATIN 20 MG TABLET PO SCH (21:00)
[2021-11-28] MEDS: carvediloL 6.25 MG TABLET PO SCH (22:06)
[2021-11-29 04:26] LABS: Basophils % 0.5 % (0.0-0.8); Eosinophils # 0.1 10*3/uL (0.0-0.87); Eosinophils % 2.6 % (0.00-10.9); Hematocrit 40.7 VOL% (35.7-47.0); Hemoglobin 13.3 GM/DL (12.0-16.0); Immature Granulocytes % 0.3 %; Immature Granulocytes Absolute 0.01 #; Lymphocytes # 1.7 10*3/uL (1.4-4.0); Lymphocytes % 45.5 % (21.3-54.2); Mean Corpuscular HGB Conc 32.7 GM/DL (32-36); Mean Corpuscular Volume 93.8 FL (87-102); Mean Platelet Volume 8.8 FL (9.6-12.0); Monocytes % 13.1 % (1.7-12.7); Platelet Count 288 T/CUMM (130-400); Red Blood Count 4.34 MC/CUMM (3.8-5.5); Red Cell Distribution Width 12.4 % (9.3-17.3); White Blood Count 3.8 T/CUMM (4-12)
[2021-11-29 04:53] LABS: Calcium 8.7 MG/DL (8.5-10.1); Osmolality,Calculated 279.5 MOS/KG (273-304); Potassium 4.2 MMOL/L (3.5-5.1); Risk Ratio 4.37; Thyroid Stimulating Hormone 0.126 uIU/ml (0.358-3.74); VLDL Cholesterol 35.2 MG/DL
[2021-11-29 05:07] LABS: Band Neutrophils 1 % (0-10); Lymphocytes 39 % (20-55); Platelet Estimate Adequate; Segmented Neutrophils 47 % (50-85); Total Cells Counted 100
[2021-11-29] MEDS ORDERED: lisinopriL 10 MG TABLET PO SCH (09:00)
[2021-11-29] MEDS ORDERED: lisinopriL 20 MG TABLET PO SCH (09:00)
[2021-11-29] MEDS ORDERED: THIAMINE 100 MG TABLET PO SCH (09:00)
[2021-11-29] MEDS ORDERED: ASPIRIN EC 325 MG TABLET PO SCH (09:00)
[2021-11-29] MEDS ORDERED: MULTIVITAMIN (CENTRUM) TABLET PO SCH (09:00)
[2021-11-29] MEDS ORDERED: amLODIPine 10 MG TABLET PO SCH (09:00)
[2021-11-29] MEDS ORDERED: FOLIC ACID 1 MG TABLET PO SCH (09:00)
[2021-11-29] MEDS: ENOXAPARIN 40 MG/0.4 ML SYRINGE SUBCUT SCH (09:23)
[2021-11-29] MEDS: PANTOPRAZOLE 40 MG TABLET PO SCH (09:26)
[2021-11-29] MEDS: carvediloL 6.25 MG TABLET PO SCH (09:26)
[2021-11-29] MEDS: INSULIN REGULAR 100 UNIT/ML SUBCUT SCH ×3 (11:01→15:53)
[2021-11-29] MEDS ORDERED: POTASSIUM CHLORIDE RIDER 10 MEQ/100 ML PREMIX IV PRN (11:55)
[2021-11-29] MEDS ORDERED: diphenhydrAMINE CAP 25 MG CAPSULE PO ONE (11:55)
[2021-11-29] MEDS ORDERED: MAGNESIUM SULF RIDER 2 GM/50 ML PREMIX IV PRN (11:55)
[2021-11-29] MEDS ORDERED: DIAZEPAM 5 MG TABLET PO ONE (11:55)
[2021-11-29] MEDS ORDERED: SODIUM CHLORIDE 0.45% 1,000 ML IV SCH (12:00)
[2021-11-29] MEDS ORDERED: fentaNYL 100 MCG/2 ML VIAL ONE (12:20)
[2021-11-29] MEDS ORDERED: VERAPAMIL 5 MG/2 ML VIAL ONE (12:20)
[2021-11-29] MEDS ORDERED: NITROGLYCERIN DRIP 50 MG/250 ML BOTTLE IV ONE (12:20)
[2021-11-29] MEDS ORDERED: MIDAZOLAM 2 MG/2 ML VIAL ONE ×2 (12:20→12:42)
[2021-11-29 17:39] VITALS: BP 121/80
[2021-11-30] MEDS ORDERED: ROSUVASTATIN 20 MG TABLET PO SCH (09:00)
== END 2021-11-29 18:25 | disposition home or self-care (01) ==
LOC: EDUNIT# → EDBD → N.ED 06:07 → N.EDINP 06:07 → SUATTDRO 09:50 → N.TELEN 20:14
PROVIDERS: ADMIT Hospitalist; ATTEND Emergency Medicine
PROC: CLCCHCL (ICD-10-PCS; 2021-11-29 15:15)